=== PATIENT | male | born 1950 | race Caucasian/White ===

== ENCOUNTER 2017-09-28 16:20 | Emergency (ER) | payer SELFPAY ==
--- NOTE | 2017-09-28 17:48 | C.PDOC ---
History Of Present Illness Patient presents to ED c/o 15kg weight loss in the past (approx) 8 months, with a 5kg loss in the last 1 month alone. He has PMHx of HTN, DM II, BPH (recently started on Flomax), splenomegaly. Patient denies chest pain, palpitations, SOB , abdominal pain, nausea/vomiting/diarrhea, fever/chills, cough, dysuria/ hematuria, or family history of malignancy. Time Seen by Provider: 09/28/17 17:23 Chief Complaint (Nursing): Weakness/Neurological Deficit History Per: Patient History/Exam Limitations: no limitations Onset/Duration Of Symptoms: Other (8 months, worse in 1 month) Past Medical History Reviewed: Historical Data, Nursing Documentation, Vital Signs Vital Signs: Last Vital Signs Temp 99 F 09/28/17 16:52 Pulse 82 09/28/17 16:52 Resp 20 09/28/17 16:52 BP 131/65 09/28/17 16:52 Pulse Ox 99 09/28/17 18:38 - Medical History PMH: Benign Prostatic Hyperplasia, Diabetes, HTN Family History: States: No Known Family Hx - Social History Hx Alcohol Use: No Hx Substance Use: No - Immunization History Hx Tetanus Toxoid Vaccination: No Hx Influenza Vaccination: No Hx Pneumococcal Vaccination: No Review Of Systems Constitutional: Positive for: Other (15kg weight loss). Negative for: Fever, Chills Cardiovascular: Negative for: Chest Pain, Palpitations Respiratory: Negative for: Shortness of Breath Gastrointestinal: Negative for: Nausea, Vomiting, Abdominal Pain, Diarrhea Skin: Negative for: Rash Neurological: Negative for: Weakness, Numbness, Headache Physical Exam - Physical Exam Appears: Well, Non-toxic, No Acute Distress, Other (thin appearing ) Skin: Normal Color, Warm, Dry Head: Normacephalic Eye(s): bilateral: Normal Inspection Oral Mucosa: Moist Cardiovascular: Rhythm Regular Respiratory: Normal Breath Sounds, No Rales, No Rhonchi, No Wheezing Gastrointestinal/Abdominal: Normal Exam, Bowel Sounds, Soft, No Tenderness Extremity: Normal ROM, No Pedal Edema, No Calf Tenderness Pulses: Left Dorsalis Pedis: Normal, Right Dorsalis Pedis: Normal Neurological/Psych: Oriented x3 ED Course And Treatment - Laboratory Results Result Diagrams: 09/28/17 17:52 09/28/17 17:52 ECG: Interpreted By Me, Viewed By Me (NSR 75 bpm, normal axis, no acute ST/T wave changes) ECG Interpretation: Normal O2 Sat by Pulse Oximetry: 99 (RA) Pulse Ox Interpretation: Normal Progress Note: Blood work, UA, EKG, CXT, CT chest/abd/pelvis ordered and reviewed. Patient given IV NS bolus. Disposition - Disposition Disposition Time: 19:00 Condition: STABLE Forms: [facility] [facility] (Armenian) - Clinical Impression Clinical Impression: Weight loss, abnormal Physician Patient Turnover Patient Signed Over To: Tatianna Oliva Handoff Comments: pending ct scan chest/abd/pelvis, reassessment
[2017-09-28 17:59] LABS: BASO % 1.1 % (0.0-2.0); EOS # 0.1 K/uL (0.0-0.7); EOS % 1.7 % (0.0-4.0); HEMOGLOBIN 10.7 g/dL (12.0-18.0); LYMPH % 30.1 % (20.0-40.0); MEAN CELL VOLUME 62.2 fL (80.0-94.0); MEAN CORPUSCULAR HEMOGLOBIN 20.2 pg (27.0-31.0); MEAN CORPUSCULAR HGB CONC 32.6 g/dL (33.0-37.0); MEAN PLATELET VOLUME 11.7 fL (7.2-11.7); MONO # 0.3 K/uL (0.0-0.8); MONO % 8.5 % (0.0-10.0); NEUT # 1.9 K/uL (1.8-7.0); NEUT % 58.6 % (50.0-75.0); NRBC % 0.1 % (0.0-2.0); RBC 5.3 Mil/uL (4.40-5.90); RED CELL DISTRIBUTION WIDTH 17.2 % (11.5-14.5); WHITE BLOOD COUNT 3.2 K/uL (4.8-10.8)
[2017-09-28] MEDS ORDERED: Sodium Chloride 0.9% 1,000 ML IV ONE (18:01)
[2017-09-28 18:10] LABS: ALB/GLOB RATIO 1.6 (1.0-2.1); ALBUMIN 4.3 g/dL (3.5-5.0); ALT/SGPT 31 U/L (21-72); AST/SGOT 26 U/L (17-59); BLOOD UREA NITROGEN 21 mg/dL (9-20); CALCIUM 8.2 mg/dl (8.6-10.4); GFR AFRICAN-AMERICAN > 60; GFR NON-AFRICAN AMERICAN > 60; LIPASE 121 U/L (23-300)
[2017-09-28] MEDS ORDERED: Iodixanol 320 MG/ML 100 ML BOTTLE IV ONE (18:17)
[2017-09-28 19:23] VITALS: O2SAT 100
[2017-09-28 19:39] LABS: SQUAMOUS EPITHIAL < 1 /hpf (0-5); URINE BILIRUBIN NEGATIVE (NEGATIVE); URINE BLOOD 1+ (NEGATIVE); URINE CLARITY Hazy (Clear); URINE COLOR Yellow (YELLOW); URINE GLUCOSE (UA) 1+ mg/dL (Normal); URINE LEUKOCYTE ESTERASE NEG Leu/uL (Negative); URINE PROTEIN NEGATIVE (NEGATIVE); URINE UROBILINOGEN NORMAL mg/dL (0.2-1.0)
--- NOTE | 2017-09-28 21:17 | CT ---
EXAM: CT Chest With Intravenous Contrast EXAM DATE/TIME: Exam ordered 09/28/2017 5:51 PM CLINICAL HISTORY: 66 years old, male; Signs and symptoms; Other: Weight loss/weakness; Additional info: Weight loss, weakness, R/O malignancy TECHNIQUE: Axial computed tomography images of the chest with intravenous contrast. All CT scans at this facility use at least one of these dose optimization techniques: automated exposure control; mA and/or kV adjustment per patient size (includes targeted exams where dose is matched to clinical indication); or iterative reconstruction. Coronal and sagittal reformatted images were created and reviewed. CONTRAST: 100 mL of visipaque 320 administered intravenously. COMPARISON: No relevant prior studies available. FINDINGS: Lungs: Scattered coarse reticular opacities are noted scattered in both lungs focal interstitial thickening is noted in the lung apices bilaterally. Biapical calcifications suggest previous granulomatous disease. There is hyperinflation. Pleural space: Unremarkable. No pneumothorax. No significant effusion. Heart: Unremarkable. No cardiomegaly. No significant pericardial effusion. Bones/joints: Degenerative changes are noted of the dorsal spine with bridging osteophytes noted at multiple levels. No acute fracture. No dislocation. Soft tissues: Unremarkable. Vasculature: Unremarkable. No thoracic aortic aneurysm. Lymph nodes: There is calcified subcarinal adenopathy. IMPRESSION: 1. Biapical scarring and calcification consistent with previous granulomatous disease. 2. Hyperinflation. EXAM: CT Abdomen and Pelvis With Intravenous Contrast CLINICAL HISTORY: 66 years old, male; Signs and symptoms; Other: Weight loss/weakness; Additional info: Weight loss, weakness, R/O malignancy TECHNIQUE: All CT scans at this facility use at least one of these dose optimization techniques: Automated exposure control; ma and kV. adjustment per patient size (includes targeted examinations dose is matched to clinical situation); or iterative reconstruction Coronal and sagittal reformatted images were created and reviewed. CONTRAST: 100 mL of visipaque 320 administered intravenously. COMPARISON: No relevant prior studies available. FINDINGS: CHEST: Lungs: Unremarkable. No mass. No consolidation. Pleural space: Unremarkable. No significant effusion. No pneumothorax. Heart: Unremarkable. No cardiomegaly. No significant pericardial effusion. ABDOMEN: Liver: A 1.8 cm cyst is noted in the lateral segment left lobe of the liver. A focal area of hypervascularity is noted in the lateral segment left lobe of the liver and near the dome measuring 1.6 x 1.3 x 1.3 cm.. It has a somewhat serpiginous appearance. The liver measures 18.6 cm in craniocaudal span. Gallbladder and bile ducts: Unremarkable. No calcified stones. No ductal dilation. Pancreas: Unremarkable. No ductal dilation. No mass. Spleen: The spleen measures 14 cm in craniocaudal span. Adrenals: Unremarkable. No mass. Kidneys and ureters: An 8 mm cyst is seen in the upper pole of right kidney.. There is mild fullness of the collecting systems bilaterally. No solid mass. Stomach and bowel: Unremarkable. No obstruction. No mucosal thickening. PELVIS: Appendix: No findings to suggest acute appendicitis. Bladder: Unremarkable. No mass. Reproductive: Unremarkable as visualized. CHEST, ABDOMEN and PELVIS: Intraperitoneal space: Unremarkable. No significant fluid collection. No free air. Bones/joints: Unremarkable. No acute fracture. No dislocation. Soft tissues: Unremarkable. Vasculature: Short gastric varices are noted around the greater curvature of the stomach. Varices are seen in the gastrohepatic ligament. Mesenteric collateral venous channels are noted. There is a retroaortic left renal vein. No aortic aneurysm. Lymph nodes: Unremarkable. No enlarged lymph nodes. Tubes, lines and devices: The suggests the possibility of an enhancing vessel perhaps an intrahepatic venous collateral or intrahepatic portal venous shunt. IMPRESSION: 1. Focal area of hypervascularity noted in the lateral segment of the left lobe of the liver near the dome.The appearance suggests the possibility of an intrahepatic venous collateral or intrahepatic portal venous shunt . Ultrasound with color Doppler might be attempted as a first line study or MRI with gadolinium. 2. Hepatosplenomegaly with abdominal varices 3. Liver cyst and right renal cyst 4. The prostate is mildly enlarged. Correlate with serum PSA is clinically indicated
[2017-09-28 21:49] VITALS: BP 165/80; PULSE 73; RESP 20; TEMP 98
--- NOTE | 2017-09-29 11:04 | RAD ---
PROCEDURE: CHEST RADIOGRAPH, 1 VIEW HISTORY: weight loss COMPARISON: Correlation made with concurrent CT scan chest abdomen pelvis. FINDINGS: LUNGS: Multiple tiny calcified granulomata seen in both lung apices right more numerous than left. Findings consistent with prior exposure to granulomatous disease process. There is linear scarring seen both. Posteromedial lower lobes. PLEURA: No pneumothorax or pleural fluid seen. CARDIOVASCULAR: Normal. OSSEOUS STRUCTURES: No significant abnormalities. VISUALIZED UPPER ABDOMEN: Normal. OTHER FINDINGS: None. IMPRESSION: Multiple tiny calcified granulomata seen in both lung apices right more numerous than left. Findings consistent with prior exposure to granulomatous disease process. There is linear scarring seen posteromedial aspect of lower lobes
--- NOTE | 2017-09-29 15:45 | CARD ---
APPROVED REPORT EKG Measurement Heart [id number] <Conclusion> Normal sinus rhythm Normal ECG
== END 2017-09-28 22:40 | disposition home or self-care (01) ==
LOC: C.ER 16:20
DX: R63.4 Abnormal weight loss (principal)
CPT/HCPCS: 71045; 71260; 74177; 80053; 81001; 82948; 83690; 84153; 85025; 93005; 96360; 99285; J7030; Q9967